=== PATIENT | female | born 1965 | race African-American/Black ===

== ENCOUNTER 2019-05-16 19:42 | Inpatient (IN) | payer OTHER ==
[2019-05-16] MEDS ORDERED: Dextrose 50% Abboject 50 ML SYRINGE ONE (20:00)
[2019-05-16] MEDS ORDERED: Morphine 4 MG/ML VIAL ONE (20:09)
[2019-05-16 20:54] LABS: ALT (SGPT) Less than 7 U/L (8-55); AST (SGOT) 6 U/L (5-34); Albumin 3.1 g/dL (3.5-5.0); Alkaline Phosphatase 79 U/L (40-150); Anion Gap 18 mmol/L (10-20); BUN (Urea Nitrogen) 12 mg/dL (9.8-20.1); Bilirubin, Total 0.8 mg/dL (0.2-1.2); Calc. Creatinine Clearance 0 mL/min (70-130); Calcium 8.6 mg/dL (7.8-10.44); Carbon Dioxide 17 mmol/L (22-29); Chloride 104 mmol/L (98-107); Estimated GFR-MDRD 46; Globulin 3.4 g/dL (2.4-3.5); Glucose 139 mg/dL (70-105); Protein, Total 6.5 g/dL (6.0-8.3); Sodium 136 mmol/L (136-145)
[2019-05-16 21:19] LABS: Bacteria/HPF 1+ HPF (None Seen); Bilirubin Negative (Negative); Blood, Urine 2+ (Negative); Clarity Turbid (Clear); Glucose, Urine (Dipstick) 200 mg/dL (Negative); Leukocyte 500 Leu/uL (Negative); Nitrite Negative (Negative); Protein, Urine (Dipstick) 20 mg/dL (Neg-Trace); Urobilinogen Normal mg/dL (Less than 2); WBC/HPF Greater than 50 HPF (0-3)
[2019-05-16 21:21] LABS: Actual Bicarbonate (HCO3a) 21.3 mEq/L (22-28); Analyzer IN Cardio ER; Base Excess (BEa) 0.5 mEq/L (-2.0 to +3.0); Calcium, Ionized 1.13 mmol/L (1.12-1.30); Carboxyhemoglobin (COHb) 0.1 gm% (0.0-3.0); Hemoglobin (Hb) 11.7 g/dL (12.0-16.0); O2 Tension (PaO2) 103.4 mmHg (80.0-100.0); Potassium - ABG Lab 2.55 mmol/L (3.70-5.30)
[2019-05-16 21:25] LABS: pH, Arterial 7.57 (7.35-7.45)
[2019-05-16 21:26] LABS: Puncture Site RBA
[2019-05-16] MEDS ORDERED: Ondansetron PF 4 MG/2 ML Vial ONE ×2 (22:05→23:10)
[2019-05-16] MEDS ORDERED: cefTRIAXone\\ROCEPHIN 1 GM VIAL ONE (23:14)
[2019-05-16] MEDS: Potassium Chloride 10 MEQ in Premix Bag 1 BAG IVPB SCH ×2 (23:58)
[2019-05-17] MEDS ORDERED: Dextrose 50% Abboject 50 ML SYRINGE SLOW IVP PRN (00:03)
[2019-05-17] MEDS ORDERED: Dextrose 5% in Water 1,000 ML IV PRN (00:03)
[2019-05-17] MEDS ORDERED: Senokot S 8.6-50 MG TAB PO PRN (00:11)
[2019-05-17] MEDS ORDERED: Acetaminophen 325 MG TAB PO PRN (00:11)
[2019-05-17] MEDS: Sodium Chloride 0.9% 1,000 ML IV SCH ×2 (00:39→14:25)
[2019-05-17 01:02] VITALS: BMI 43.9
[2019-05-17] MEDS: Metoclopramide HCl 10 MG/2 ML VIAL IVP PRN ×2 (01:30→08:28)
--- NOTE | 2019-05-17 04:16 | HP ---
PRIMARY CARE PHYSICIAN: Dr. Dana Gresham. CHIEF COMPLAINT: Nausea, vomiting, transfer from [facility]. HISTORY OF PRESENT ILLNESS: Ms. Ochoa is a 53-year-old female with a longstanding history of diabetes type 1, who sought care in the emergency room at [facility] today for nausea and vomiting, diffuse abdominal pain x1 week. She reports that she has been unable to keep anything down. Reports that she has been taking her blood sugar this week and it has been ranging anywhere from 100 to 300 and she takes her insulin as prescribed. Initially, in [facility], her gap was 20. Glucose was 258, CO2 18, BUN 13.6, creatinine is 1.6. Lactic acid was 2.3. Sodium 135, potassium 3.5, white blood cell count 11.2. UA with ketones, white blood cells. She was started on fluids, was given 8 units subcu of regular insulin and then started on an insulin drip at 8 units/hour, given 2 L of lactated Ringer's and some Zosyn for a presumptive UTI as well as some Zofran and transferred to the emergency room at [facility] for admission for DKA. When the patient arrived at the ER at [facility] [place] in [place], the patient's blood sugar was 70. The insulin drip was stopped. The patient was given an amp of D50 and blood sugar improved to 109. The patient reports that she has had similar symptoms in the past with gastroparesis, nausea, vomiting. States that she saw her primary care several weeks ago, was given several medications for the gastroparesis, nausea, vomiting, and states that they have not really helped. Reports that she does take Levemir b.i.d. and then sliding scale. When seen in the emergency room for admission, the patient denied any diarrhea. Reports that her stomach primarily hurts in the upper epigastric region and still was very nauseous. Denied any other complaints. Urine was repeated, 500 leukocytes, 200 glucose, ketones were 20, blood +2, 1+ bacteria. Sodium 136, potassium 3.0. The patient was given some potassium in the emergency room. Creatinine at 1.44, estimated GFR is 46. Does have a past medical history for hypertension, diabetes type 1, lymphedema, also gastroparesis. The patient is subsequently admitted to the medical unit to monitor blood sugar. Since it was initially up, she was given quite a bit of insulin, was low at 70 on admission to this ER and being a type 1. We will monitor blood sugar and treat the nausea, vomiting, potential gastroparesis. CT scan was done in [facility], was unremarkable. PAST MEDICAL HISTORY: As above. Hypertension, diabetes type 1, lymphedema. PAST SURGICAL HISTORY: None. PSYCHIATRIC HISTORY: None. SOCIAL HISTORY: Lives with her family in [place]. REVIEW OF SYSTEMS: Reports chills. Denies fever. Reports generalized weakness. Reports diffuse abdominal pain. Reports appetite changes. Reports nausea, vomiting. All other systems are reviewed and are negative unless mentioned in the HPI. PHYSICAL EXAMINATION: VITAL SIGNS: Blood pressure 119/52, pulse is 79, respirations 18, temperature is 98.2, pulse ox is 99% on room air. CONSTITUTIONAL: The patient appears nontoxic. She is alert and oriented to person, place, and time. She appears uncomfortable. HEENT: Head is atraumatic and normocephalic. Eyes, pupils are equally round and reactive to light. Extraocular muscles are intact. NECK: Trachea is midline. Normal range of motion. RESPIRATORY/CHEST: Breath sounds are clear. No findings of any respiratory distress. CARDIOVASCULAR: Regular rate and rhythm. Heart sounds are normal. ABDOMEN: Diffusely tender, moderate intensity. Bowel sounds are hyperactive. Exam is limited by body habitus. BACK: Normal inspection. Normal range of motion. No tenderness. EXTREMITIES: Upper extremities; normal range of motion, motor strength is normal, sensation is intact, radial pulses equal. 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 Full range of motion. NEURO: The patient is oriented to person, place, and time. Speech is normal. SKIN: Warm, dry, normal in color. LABORATORY DATA: Urine turbid, leukocytes 500, nitrite negative, glucose 200, ketones 20, blood urine 2, bacteria +1. Sodium is 136, potassium is 3.0, chloride is 104, carbon dioxide is 17, creatinine is 1.44, glucose is 139, albumin is 3.1. ASSESSMENT AND PLAN: 1. Hyper and hypoglycemic. Initially, glucose was in the 200s in [facility], was started on insulin. When she arrived at [facility], it was 70, insulin was stopped. The patient was given an amp of D50. We will check Accu-Cheks to every 2 hours at least for the next 12 to 24 hours. A sliding scale insulin has been ordered. We will restart home long-acting once verified. Normal saline at 75 mL/hour has been started. We will recheck labs in the morning. 2. Hypokalemia. The patient has been given several doses of replacement potassium. We will recheck later this morning. 3. Nausea, vomiting, epigastric abdominal pain. Both Zofran and Reglan have been ordered p.r.n. as needed. 4. Urinary tract infection. The urine was sent off for culture. We started Rocephin 1 g acute 24 hours. 5. Acute kidney injury. The patient's creatinine is 1.44. I do not have any in the system to compare it to. We will recheck in the morning. Would gently hydrate. 6. Hypertension. We will trend. Add p.r.n. medication as needed. Hospital course dependent on clinical findings. Job ID: [id number]
[2019-05-17] MEDS: Ondansetron PF 4 MG/2 ML Vial IVP PRN ×3 (05:15→20:56)
[2019-05-17 06:05] LABS: #Eosinphils 0.1 thou/uL (0.0-0.7); #Lymphocytes 2.2 thou/uL (1.20-3.40); #Monocytes 0.6 thou/uL (0.11-0.59); #Neutrophils 6.2 thou/uL (1.40-6.50); %Basophils 0.4 % (0.0-1.0); %Eosinophils 0.8 % (0.0-10.0); %Monocytes 6.6 % (0.0-10.0); %Neutrophils 68.3 % (42.0-75.0); Hemoglobin 10.8 g/dL (12.0-16.0); Mean Corpuscular HGB CONC 31.3 g/dL (32.0-36.0); Mean Corpuscular Hemoglobin 28.2 pg (27.0-31.0); Mean Corpuscular Volume 90.2 fL (78.0-98.0); Mean Platelet Volume 7.9 fL (7.4-10.4); Platelet Count 227 thou/uL (130-400); Red Blood Cell (RBC) Count 3.81 mill/uL (4.20-5.40)
[2019-05-17 06:25] LABS: ALT (SGPT) Less than 7 U/L (8-55); AST (SGOT) 9 U/L (5-34); Albumin 3.1 g/dL (3.5-5.0); Alkaline Phosphatase 82 U/L (40-150); Anion Gap 17 mmol/L (10-20); BUN (Urea Nitrogen) 14 mg/dL (9.8-20.1); Bilirubin, Total 0.7 mg/dL (0.2-1.2); Calc. Creatinine Clearance 95 mL/min (70-130); Calcium 8.8 mg/dL (7.8-10.44); Carbon Dioxide 19 mmol/L (22-29); Chloride 104 mmol/L (98-107); Estimated GFR-MDRD 44; Globulin 3.7 g/dL (2.4-3.5); Glucose 156 mg/dL (70-105); Potassium 3.5 mmol/L (3.5-5.1); Protein, Total 6.8 g/dL (6.0-8.3); Sodium 136 mmol/L (136-145)
[2019-05-17] MEDS ORDERED: Famotidine 20 MG TAB PO SCH (09:00)
[2019-05-17] MEDS: Heparin 5,000 UNITS/ML VIAL SC SCH ×2 (16:39→20:55)
[2019-05-17] MEDS: Metoclopramide HCl 10 MG/2 ML VIAL IVP SCH ×2 (16:39→20:55)
--- NOTE | 2019-05-17 17:14 | PRG ---
DATE OF SERVICE: 05/17/2019 SUBJECTIVE: Ms. Jayshree Ochoa is a 53-year-old female with past medical history significant for long-standing type 1 diabetes mellitus along with gastroparesis, who presented to the hospital with complaints of abdominal pain, nausea, vomiting, and generalized weakness. The patient was initially hyperglycemic in [place] and insulin drip was started, however blood sugar on arrival to our ER was 70. She has been monitored closely with q.2 hours checks and her blood sugar has recovered. The patient continues to complain of perfuse nausea and intractable vomiting. She is currently not able to hold down clear liquids. She continues to complain of abdominal pain, however, states that the abdominal pain is located more in her lower abdomen as opposed to her epigastric region as she mentioned yesterday. She reports chills, but no fever. No chest pain or shortness of breath. OBJECTIVE: VITAL SIGNS: Blood pressure 138/82, pulse is 89, respirations are 16, O2 saturation is 100% on room air, and temperature 98.4. GENERAL: This patient is a morbidly obese female, resting in bed, appears in mild distress secondary to active vomiting. NECK: No JVD. Trachea is midline. CV: S1 and S2. Regular rate and rhythm. No appreciable murmurs, rubs, or gallops. LUNGS: Regular respiratory rate and pattern. Clear to auscultation bilaterally. ABDOMEN: Positive bowel sounds in all 4 quadrants. Mildly tender in lower abdomen. EXTREMITIES: Positive for +1 nonpitting edema, extremities are warm and well perfused. SKIN: Warm and dry. NEUROLOGIC: Cranial nerves 2 through 12 grossly intact. The patient is nonfocal. LABORATORY DATA: White blood cell count is 9, hemoglobin is 10.8, hematocrit 34.4, platelet count is 227. Sodium 136, potassium 3.5, creatinine 1.48. AST 9, ALT 7, and alkaline phosphatase 82. ASSESSMENT: 1. Type 1 diabetes mellitus with hypoglycemia at presentation on insulin drip, glucose now recovered. 2. Nausea and vomiting, likely secondary to gastroparesis, however, urinary tract infection may be contributing. 3. Urinary tract infection with associated abdominal pain. 4. Obesity. 5. Chronic kidney disease, likely secondary to diabetic nephropathy. 6. Largely nonambulatory state secondary to chronic debility and deconditioning. PLAN: We will obtain a lipase. As far as imaging, the patient did have a CT scan, which showed no acute pathology of the abdomen. We will make her Reglan scheduled, and add GI prophylaxis with IV Pepcid. We will continue Rocephin for UTI, culture is still pending. We will obtain lipase to rule out any pancreatitis. The patient will need to tolerate oral intake prior to discharge, although the patient does have known gastroparesis and may continue to have some nausea and vomiting secondary to this. Continue sliding scale insulin. Expect discharge tomorrow if she can tolerate oral intake. Job ID: [id number]
[2019-05-17] MEDS: cefTRIAXone\\ROCEPHIN 1 GM in Sodium Chloride 0.9% 100 ML IVPB SCH (20:55)
[2019-05-18] MEDS: Sodium Chloride 0.9% 1,000 ML IV SCH ×2 (01:18→16:48)
[2019-05-18] MEDS: Metoclopramide HCl 10 MG/2 ML VIAL IVP SCH ×4 (01:20→20:32)
[2019-05-18] MEDS: Famotidine/PF 20 mg/2ml Vial SLOW IVP SCH (08:14)
[2019-05-18] MEDS: Heparin 5,000 UNITS/ML VIAL SC SCH ×3 (08:14→20:32)
[2019-05-18 09:06] LABS: #Eosinphils 0.2 thou/uL (0.0-0.7); #Lymphocytes 1.5 thou/uL (1.20-3.40); #Monocytes 0.3 thou/uL (0.11-0.59); #Neutrophils 4.3 thou/uL (1.40-6.50); %Basophils 0.1 % (0.0-1.0); %Eosinophils 2.6 % (0.0-10.0); %Lymphocytes 23.7 % (21.0-51.0); %Monocytes 5.2 % (0.0-10.0); %Neutrophils 68.5 % (42.0-75.0); Hemoglobin 10.4 g/dL (12.0-16.0); Mean Corpuscular HGB CONC 32.5 g/dL (32.0-36.0); Mean Corpuscular Hemoglobin 29.1 pg (27.0-31.0); Mean Corpuscular Volume 89.5 fL (78.0-98.0); Mean Platelet Volume 8.1 fL (7.4-10.4); Platelet Count 192 thou/uL (130-400); RBC Distribution Width 12.8 % (11.5-14.5); White Blood Cell (WBC) Count 6.2 thou/uL (4.8-10.8)
[2019-05-18 09:27] LABS: Anion Gap 14 mmol/L (10-20); BUN (Urea Nitrogen) 8 mg/dL (9.8-20.1); Calc. Creatinine Clearance 153 mL/min (70-130); Calcium 8.3 mg/dL (7.8-10.44); Carbon Dioxide 20 mmol/L (22-29); Chloride 103 mmol/L (98-107); Estimated GFR-MDRD 77; Glucose 212 mg/dL (70-105); Sodium 134 mmol/L (136-145)
--- NOTE | 2019-05-18 11:06 | RAD ---
XR Abdomen 1 View/KUB History: Continued abdominal pain Comparison: CT abdomen and pelvis 2 days prior Findings: Mild degenerative disease of the SI joints and hips bilaterally. These hepatic changes of b oth greater trochanters. Right upper quadrant cholecystectomy clips. There is soft tissue calcification directing over the rig ht hemiabdomen as seen on the prior clam grader tomogram although not within the peritoneal cavity. No dilated air-filled loops of large or small bowel. Impression: No acute intra-abdominal abnormality.
[2019-05-18] MEDS ORDERED: Potassium Chloride 20 MEQ TAB PO SCH (11:45)
[2019-05-18] MEDS: HumaLOG 300 UNITS/3 ML VIAL SC PRN ×2 (12:30→20:36)
--- NOTE | 2019-05-18 19:15 | PRG ---
DATE OF SERVICE: 05/18/2019 SUBJECTIVE: Ms. brent Ochoa is a 53-year-old female with past medical history significant for long-standing type 1 diabetes mellitus, along with gastroparesis, who presented to the hospital with complaints of abdominal pain, nausea, vomiting, and generalized weakness. The patient was initially hyperglycemic in [place], started on insulin drip, and transferred to our facility where she was hypoglycemic. This has resolved, however, the patient continues to complain of nausea, vomiting, and abdominal pain. Her CT scan, at [place] was negative for any acute pathology. I have repeated a KUB today, which also shows no evidence of acute pathology. The patient was initially thought to have a UTI, although culture is currently negative. The patient denies any chest pain or shortness of breath. She has been willing to work with PT. OBJECTIVE: VITAL SIGNS: Blood pressure 124/72, pulse 76, O2 saturation 100% on room air, respirations 16, temperature 97.8. GENERAL: This is a morbidly obese female, resting in bed, in no acute distress. NECK: No JVD. Trachea is midline. CV: S1 and S2. Regular rate and rhythm. No appreciable murmurs, rubs, or gallops. LUNGS: Regular respiratory rate and pattern. Clear to auscultation bilaterally. ABDOMEN: Positive bowel sounds in all 4 quadrants. She is mildly tender in the lower abdomen. EXTREMITIES: Positive for +1 nonpitting edema, extremities are warm and well perfused. SKIN: Warm and dry. NEUROLOGIC: Cranial nerves 2 through 12 grossly intact. The patient is nonfocal. LABORATORY DATA: Sodium 134, potassium 3.0, anion gap 14, BUN 8, creatinine 0.92, GFR 77, glucose is 212. ASSESSMENT: 1. Type 1 diabetes mellitus with hypoglycemic presentation on insulin drip, glucose now recovered. 2. Nausea and vomiting along with abdominal pain, differential includes gastroparesis; however, her urinary tract infection may be contributing, although cultures are currently negative. 3. Hypokalemia. 4. Morbid obesity. 5. Chronic kidney disease, stable, likely secondary to diabetic nephropathy. 6. Largely nonambulatory state secondary to chronic debility and deconditioning. PLAN: The patient continues to have nausea, vomiting, and abdominal pain with unclear pathology at this time. She is continuing to receive Reglan and IV Pepcid. Given her negative cultures, I will discontinue Rocephin at this time. This patient was discussed in detail with Dr. Strange who does recommend GI consult with Dr. Yang tomorrow. We will continue sliding scale insulin. We will continue clear liquids and continue to advance if tolerated. Job ID: [id number]
[2019-05-18] MEDS: cefTRIAXone\\ROCEPHIN 1 GM in Sodium Chloride 0.9% 100 ML IVPB SCH (20:32)
[2019-05-19] MEDS: Sodium Chloride 0.9% 1,000 ML IV SCH (03:09)
[2019-05-19] MEDS: Metoclopramide HCl 10 MG/2 ML VIAL IVP SCH ×4 (03:10→20:49)
[2019-05-19] MEDS: Ondansetron PF 4 MG/2 ML Vial IVP PRN (05:24)
[2019-05-19 05:26] LABS: #Eosinphils 0.1 thou/uL (0.0-0.7); #Lymphocytes 1.2 thou/uL (1.20-3.40); #Monocytes 0.4 thou/uL (0.11-0.59); #Neutrophils 3.8 thou/uL (1.40-6.50); %Basophils 0.1 % (0.0-1.0); %Eosinophils 2.5 % (0.0-10.0); %Lymphocytes 22.1 % (21.0-51.0); %Monocytes 7.4 % (0.0-10.0); %Neutrophils 67.9 % (42.0-75.0); Mean Corpuscular HGB CONC 32.4 g/dL (32.0-36.0); Mean Corpuscular Volume 89.6 fL (78.0-98.0); Mean Platelet Volume 8.3 fL (7.4-10.4); Platelet Count 197 thou/uL (130-400); RBC Distribution Width 12.6 % (11.5-14.5); Red Blood Cell (RBC) Count 3.43 mill/uL (4.20-5.40); White Blood Cell (WBC) Count 5.6 thou/uL (4.8-10.8)
[2019-05-19 05:49] LABS: Anion Gap 13 mmol/L (10-20); BUN (Urea Nitrogen) 5 mg/dL (9.8-20.1); Calc. Creatinine Clearance 170 mL/min (70-130); Calcium 7.8 mg/dL (7.8-10.44); Carbon Dioxide 20 mmol/L (22-29); Chloride 106 mmol/L (98-107); Estimated GFR-MDRD 87; Glucose 188 mg/dL (70-105); Sodium 136 mmol/L (136-145)
[2019-05-19 05:54] LABS: Potassium 2.8 mmol/L (3.5-5.1)
[2019-05-19] MEDS ORDERED: Potassium Chloride 20 MEQ in Premix Bag 1 BAG IVPB SCH (06:30)
[2019-05-19] MEDS: Potassium Chloride 20 MEQ TAB PO SCH ×2 (08:17→08:28)
[2019-05-19] MEDS: Heparin 5,000 UNITS/ML VIAL SC SCH ×3 (08:18→20:49)
[2019-05-19] MEDS: Famotidine/PF 20 mg/2ml Vial SLOW IVP SCH (08:18)
[2019-05-19] MEDS: Potassium Chloride 20 MEQ in Premix Bag 1 BAG IVPB SCH ×2 (11:32→14:17)
[2019-05-19] MEDS: HumaLOG 300 UNITS/3 ML VIAL SC PRN (14:19)
[2019-05-19 15:53] LABS: Potassium 3.2 mmol/L (3.5-5.1)
[2019-05-19] MEDS ORDERED: Potassium Chloride 20 MEQ TAB PO SCH (16:30)
--- NOTE | 2019-05-19 17:15 | PRG ---
DATE OF SERVICE: SUBJECTIVE: Ms. Jayshree Ochoa is a 53-year-old female with past medical history significant for long-standing type 1 diabetes mellitus, gastroparesis, who presented to the hospital with complaints of abdominal pain, nausea, vomiting, and generalized weakness. The patient has had minimal improvements in her symptoms since her admission. She has been treated with Zofran, and Phenergan along with IV fluid resuscitation and supportive care. Her CT scan and KUB have been negative for any acute pathology. Her urine culture was negative. The patient says that she has maybe had some improvement in her abdominal pain, but per nursing staff, she is continuing to be nauseated and not be able to take any oral pills. She reports normal bowel movements. She denies any chest pain or shortness of breath at this time. OBJECTIVE: VITAL SIGNS: Blood pressure is 129/76, pulse 53, respirations 16, O2 saturation 99%, temperature 98.1. GENERAL: This is a morbidly obese female, sitting up in bed, in no acute distress. NECK: No JVD. Trachea is midline. CV: S1 and S2. Regular rate and rhythm. No appreciable murmurs, rubs, or gallops. LUNGS: Regular respiratory rate and pattern. Clear to auscultation bilaterally. ABDOMEN: Positive bowel sounds in all 4 quadrants. Nontender. EXTREMITIES: Positive for +1 nonpitting edema. Extremities are warm and well perfused. SKIN: Warm and dry. NEUROLOGIC: Cranial nerves 2 through 12 are grossly intact. The patient is nonfocal. LABORATORY DATA: White blood cell count 5.6, hemoglobin 10, hematocrit 30.8, sodium 136, potassium 2.8 which has improved to 3.2 after repletion, chloride 106, carbon dioxide 20, anion gap 13, creatinine 0.83, GFR 87, blood glucose 187. Urine culture negative for any growth at 36 hours. ASSESSMENT: 1. Continued nausea and vomiting with intermittent abdominal pain, differential includes gastroparesis, however, we have consulted GI given its refractory course. 2. Hypokalemia. 3. Type 1 diabetes mellitus, long-standing. 4. Morbid obesity. 5. Chronic kidney disease, stable, creatinine normalized. 6. Largely nonambulatory state secondary to chronic debility and deconditioning. 7. Anemia of chronic disease. PLAN: The patient does continue to have nausea, vomiting, and poor oral intake. We have consulted GI for further assessment. We will continue to replete her potassium, and change her IV fluids to lactated Ringer's. We will continue supportive care and hope is for continuing to advance her diet, although she has not tolerated anything besides clear liquids. Appreciate GI recommendations. We will recheck BMP in the morning. Job ID: [id number]
[2019-05-19] MEDS: Lactated Ringer's 1,000 ML IV SCH ×2 (17:53→20:48)
--- NOTE | 2019-05-19 21:46 | CON ---
DATE OF CONSULTATION: 05/19/2019 REASON FOR CONSULTATION: Abdominal pain, nausea, vomiting. HISTORY OF PRESENT ILLNESS: Ms. Jayshree Ochoa is a very obese 53-year-old female with known hypertension, diabetes mellitus. The patient was seen in [place] ER with abdominal pain, nausea, and vomiting. The patient was found to have markedly elevated high blood sugar. She was given chronic insulin drip and was transferred to [facility] [place] in [place]. When she arrived in the ER, she was found to have actually hypoglycemia. Blood sugar was around 70. She was given IV D50 and also started on IV fluids. Abdominal pain is over the modesta-epigastric area and is persistent. She also has nausea and vomiting. Since admission, her symptoms markedly improved. She has less abdominal pain, but the nausea is gone. No more vomiting. She is tolerating clear liquid diet. Apparently, she has had this nausea, vomiting, and abdominal pain off and on. The patient never had any endoscopies in the past. The patient is going to see a manifest clerk in [facility] in [place] on wednesday. She does not know the name of the doctor. The patient denies any dysphagia, odynophagia. These symptoms have been going on for a long time and occurs off and on. The pain is actually more over the epigastric area and is persistent, at times burning and at times cramping in nature. Also she has nausea and vomiting. No history of any hematemesis. No history of any melena. No history of any fever or chills. The patient has no relevant symptoms. ALLERGIES: NONE. MEDICAL ILLNESS: 1. Obesity. 2. Hypertension. 3. Diabetes mellitus. 4. Chronic lymphedema. PAST SURGICAL HISTORY: None. SOCIAL HISTORY: The patient does not smoke or drink alcohol. MEDICATION LIST: Reviewed. REVIEW OF SYSTEMS: PICKER TENDER: No chronic headache. No seizure disorder. No history of TIA. No syncope. HEAD: No chronic headache. No dizziness or syncope. EYES: Vision is normal. No diplopia. ENT: Unknown. NECK: No stiffness or any limiting movement. LUNGS: No chronic coughing. No hemoptysis. No dyspnea. CARDIOVASCULAR: No chest pain. No palpitation. No dyspnea, orthopnea, or PND. GI: As in history of present illness. : No dysuria, hematuria, or frequent urination. NEUROENDOCRINE: Not relevant. PHYSICAL EXAMINATION: GENERAL: The patient is very obese, appears very comfortable, in no acute distress. She is awake, alert, oriented to time, place, and person. VITAL SIGNS: Her pulse is 79, blood pressure 120/70. HEENT: Conjunctivae clear. NECK: Supple. No adenitis or thyromegaly noted. CARDIOVASCULAR: First and second heart sounds heard. LUNGS: Clear to auscultation. ABDOMEN: Soft. Abdomen is nondistended. Abdomen is tender over the epigastric area and also over the periumbilical area. There is no rebound or guarding. Bowel sounds are normal. EXTREMITIES: Reveal lymphedema. LABORATORY DATA: Done show urinalysis, leukocytosis 500, nitrite negative, glucose 220, blood in the urine 2+. Sodium 136, potassium 3, chloride 104, bicarb 17, BUN is normal, creatinine is 1.44, albumin 3.1. CLINICAL IMPRESSION: 1. A 53-year-old obese female with abdominal pain, nausea, and vomiting. The symptoms are slowly getting better. Apparently, she has had similar episodes in the past. The patient has an x-ray study done which we reviewed, not sure what was done exactly. However, she never had an EGD done before. 2. Obesity. 3. Diabetes. 4. Hypertension. 5. Lymphedema. Overall impression, it is very much possible that the patient could simply have gastroparesis to account for nausea and vomiting. She is also having abdominal pain. She had no evidence of pancreatitis. RECOMMENDATIONS: Plan for EGD tomorrow and I will make further recommendation after EGD. Job ID: [id number]
[2019-05-20] MEDS: Metoclopramide HCl 10 MG/2 ML VIAL IVP SCH ×3 (03:47→15:40)
[2019-05-20] MEDS: Ondansetron PF 4 MG/2 ML Vial IVP PRN (04:26)
[2019-05-20 05:43] LABS: Anion Gap 12 mmol/L (10-20); BUN (Urea Nitrogen) Less than 4 mg/dL (9.8-20.1); Calc. Creatinine Clearance 176 mL/min (70-130); Calcium 8.4 mg/dL (7.8-10.44); Carbon Dioxide 21 mmol/L (22-29); Chloride 104 mmol/L (98-107); Estimated GFR-MDRD 90; Glucose 215 mg/dL (70-105); Potassium 3.3 mmol/L (3.5-5.1); Sodium 134 mmol/L (136-145)
[2019-05-20] MEDS: HumaLOG 300 UNITS/3 ML VIAL SC PRN (05:45)
[2019-05-20 07:06] VITALS: BP 129/90; TEMP 98.4
[2019-05-20] MEDS ORDERED: Famotidine/PF 20 mg/2ml Vial SLOW IVP SCH (09:00)
[2019-05-20] MEDS: Heparin 5,000 UNITS/ML VIAL SC SCH ×2 (10:00→14:22)
[2019-05-20] MEDS: Potassium Chloride 20 MEQ TAB PO SCH (10:01)
[2019-05-20] MEDS ORDERED: PROPOFOL 200 MG/20 ML VIAL ONE (13:27)
--- NOTE | 2019-05-20 14:44 | OP ---
DATE OF PROCEDURE: 05/20/2019 PROCEDURE PERFORMED: Esophagogastroduodenoscopy. PREOPERATIVE DIAGNOSIS: A 53-year-old female with abdominal pain, nausea, and vomiting. The symptoms have been recurrent. The patient is undergoing esophagogastroduodenoscopy. POSTOPERATIVE DIAGNOSES: 1. Normal esophageal mucosa. 2. Small hiatal hernia. 3. Mild mucosal hyperemia over the gastric antrum and body, nonspecific. 4. Normal duodenum. DESCRIPTION OF PROCEDURE: The patient was placed on her left lateral position and was given sedation by Anesthesia Department. A [employer] video gastroscope under direct vision was passed down the oropharynx, past the GE junction into the stomach, and subsequently, into the descending duodenum. The esophageal mucosa appeared normal. No esophagitis or any other pathology seen. She had small hiatal hernia. Retroflexion failed to show any pathology in the fundus or cardia. The gastric body and antrum showed mild mucosal hyperemia. The pyloric channel was free of any ulceration. The duodenal bulb, descending duodenum, no pathology seen. The stomach decompressed and the scope removed. RECOMMENDATION: 1. 1800 calorie ADA diet. 2. Continue Reglan. If she does well on her diet, I may consider discharge home in the next 24 hours. The patient has an appointment with GI doctor in [facility] on Wednesday, and she will follow up with him and further workup will be done by her primary construction sales representative. Job ID: [id number]
== END 2019-05-20 17:40 | disposition home or self-care (01) | DRG 74 ==
LOC: ERS 19:42 → OBSVTOIN 23:33 → T4-B 23:33 → INTOOBSV 23:33
PROVIDERS: ADMIT Internal Medicine; ATTEND Internal Medicine
PROC: 0DJ08ZZ Inspection of Upper Intestinal Tract, Via Natural or Artificial Opening Endoscopic (ICD-10-PCS; principal; 2019-05-20)
DX: E10.43 Type 1 diabetes mellitus with diabetic autonomic (poly)neuropathy (principal); N39.0 Urinary tract infection, site not specified; Z68.41 Body mass index [BMI] 40.0-44.9, adult; N17.9 Acute kidney failure, unspecified; E10.649 Type 1 diabetes mellitus with hypoglycemia without coma; E10.65 Type 1 diabetes mellitus with hyperglycemia; E66.01 Morbid (severe) obesity due to excess calories; K31.84 Gastroparesis; E87.6 Hypokalemia; D63.1 Anemia in chronic kidney disease; K44.9 Diaphragmatic hernia without obstruction or gangrene; K31.89 Other diseases of stomach and duodenum; R11.2 Nausea with vomiting, unspecified; I89.0 Lymphedema, not elsewhere classified; E10.22 Type 1 diabetes mellitus with diabetic chronic kidney disease; N18.9 Chronic kidney disease, unspecified; I12.9 Hypertensive chronic kidney disease with stage 1 through stage 4 chronic kidney disease, or unspecified chronic kidney disease; E10.21 Type 1 diabetes mellitus with diabetic nephropathy; Z79.4 Long term (current) use of insulin
CPT/HCPCS: 36415; 36416; 74018; 80048; 80053; 81003; 81015; 82805; 83690; 85025; 87086; 94760; J0696; J1644; J2270; J2405; J2704; J2765; J3480; J3490; S0028

== ENCOUNTER 2021-09-18 15:01 | Outpatient (CLI) | payer OTHER ==
[2021-09-19 08:46] LABS: SARS-CoV-2 PCR by NAA Not Detected (NotDetected)
== END 2021-09-18 15:02 | disposition home or self-care (01) ==
LOC: LABBT 15:01
PROVIDERS: ATTEND Internal Medicine
DX: Z01.812 Encounter for preprocedural laboratory examination (principal); Z12.11 Encounter for screening for malignant neoplasm of colon; R11.2 Nausea with vomiting, unspecified; Z20.822 Contact with and (suspected) exposure to COVID-19
CPT/HCPCS: U0003; U0005

== ENCOUNTER 2021-09-22 12:29 | Day surgery (SDC) | payer OTHER ==
[2021-09-19 12:38] VITALS: BMI 40.8
[2021-09-22] MEDS ORDERED: Lidocaine 1% PF 5 ML VIAL ONE (13:37)
[2021-09-22] MEDS ORDERED: PROPOFOL 200 MG/20 ML VIAL ONE (13:37)
[2021-09-22] MEDS ORDERED: Ondansetron PF 4 MG/2 ML Vial ONE (14:53)
== END 2021-09-22 15:22 | disposition home or self-care (01) ==
LOC: SDC 12:29
PROVIDERS: ATTEND Internal Medicine
PROC: 0DJ08ZZ Inspection of Upper Intestinal Tract, Via Natural or Artificial Opening Endoscopic (ICD-10-PCS; principal; 2021-09-22)
PROC: 0DJD8ZZ Inspection of Lower Intestinal Tract, Via Natural or Artificial Opening Endoscopic (ICD-10-PCS; principal; 2021-09-22)
DX: R11.2 Nausea with vomiting, unspecified (principal); K57.30 Diverticulosis of large intestine without perforation or abscess without bleeding; E11.43 Type 2 diabetes mellitus with diabetic autonomic (poly)neuropathy; K31.84 Gastroparesis; E11.69 Type 2 diabetes mellitus with other specified complication; M86.8X9 Other osteomyelitis, unspecified sites; Z90.49 Acquired absence of other specified parts of digestive tract; Z98.890 Other specified postprocedural states; Z79.82 Long term (current) use of aspirin; Z79.4 Long term (current) use of insulin; Z79.899 Other long term (current) drug therapy
CPT/HCPCS: J2405; J2704